=== PATIENT | male | born 1955 | race Caucasian/White ===

== ENCOUNTER 2023-01-05 12:48 | Outpatient (CLI) | payer MEDICARE, BC, SELFPAY ==
[2023-01-05] MEDS: BRIMONIDINE TARTRATE 0.2% OPHTH 1 DROP EYE-LEFT ×2 (12:57→13:49)
[2023-01-05] MEDS: TETRACAINE 0.5% OPHTH 1 DROP EYE-LEFT ×3 (12:57→13:39)
[2023-01-05 12:59] VITALS: BP 144/90; PULSE 93; RESP 16; O2SAT 97
--- NOTE | 2023-01-05 13:47 | W.PM.OPTPROC ---
Procedure Note Date of procedure: 01/05/23 Will [facility] bill your pro fee for this procedure?: Yes Procedure Description: SURGEON: Charmaine Villarreal MD PREOPERATIVE DIAGNOSIS: Posterior capsular opacity, left eye POSTOPERATIVE DIAGNOSIS: Posterior capsular opacity, left eye PROCEDURE: YAG laser capsulotomy, left eye ANESTHESIA: Topical. ESTIMATED BLOOD LOSS: None PATHOLOGY SPECIMEN: None COMPLICATIONS: None INDICATIONS: See consult note for details. The risks, benefits and alternatives of the procedure were explained to the patient, who elected to proceed and signed informed consent to do so. PROCEDURE: The patient was brought to the pre-holding area where the left eye was identified as the operative eye. I placed my initials above this eye. The patient received 2 sets of 1 drop of 0.5% tetracaine and 1 drop of 1% tropicamide. They also received 1 drop of 0.2% brimonidine. They received 1 drop of 0.5% tetracaine immediately prior to bringing them back for the procedure. The patient was then brought to the procedure room where the left eye was again identified as the operative eye. A YAG Zhao capsulotomy lens was placed on the eye. The laser was administered using a total number of 11 shots with an energy of 2.4 mJ per shot for a total energy of 26 mJ. The patient tolerated the procedure well. DISPOSITION: The patient was taken back to the pre-holding area and given 1 drop of 0.2% brimonidine in the left eye. They were discharged to home in stable condition. The patient was instructed to call me or go to the emergency department with any sudden change, including dramatic loss of vision, severe pain in the eye or eyebrow region, nausea, or vomiting. The patient was instructed to use the 0.2% brimonidine 1 drop 2 times a day in the left eye for 1 week. The patient will follow up in the clinic in 1-2 weeks
== END 2023-01-05 13:50 | disposition home or self-care (01) ==
LOC: EYE PRC 12:49
PROVIDERS: PCP Internal Medicine; Visit Provider Ophthalmology
DX: H26.9 Unspecified cataract (principal)
CPT/HCPCS: 66821; A9270

== ENCOUNTER 2023-02-09 11:07 | Outpatient (CLI) | payer MEDICARE, BC, SELFPAY ==
[2023-02-09 11:14] VITALS: BP 165/95; PULSE 78; RESP 16; O2SAT 95
[2023-02-09] MEDS: TETRACAINE 0.5% OPHTH 1 DROP EYE-RIGHT ×3 (11:18→11:52)
[2023-02-09] MEDS: BRIMONIDINE TARTRATE 0.2% OPHTH 1 DROP EYE-RIGHT ×2 (11:18→12:00)
--- NOTE | 2023-02-09 12:40 | P.OPTPRC_ITS ---
Procedure Note Date of procedure: 02/09/23 Will [facility] bill your pro fee for this procedure?: Yes Procedure Description: SURGEON: Charmaine Villarreal MD PREOPERATIVE DIAGNOSIS: Posterior capsular opacity, right eye POSTOPERATIVE DIAGNOSIS: Posterior capsular opacity, right eye PROCEDURE: YAG laser capsulotomy, right eye ANESTHESIA: Topical. ESTIMATED BLOOD LOSS: None PATHOLOGY SPECIMEN: None COMPLICATIONS: None INDICATIONS: See consult note for details. The risks, benefits and alternatives of the procedure were explained to the patient, who elected to proceed and signed informed consent to do so. PROCEDURE: The patient was brought to the pre-holding area where the right eye was identified as the operative eye. I placed my initials above this eye. The patient received 2 sets of 1 drop of 0.5% tetracaine and 1 drop of 1% tropicamide. They also received 1 drop of 0.2% brimonidine. They received 1 drop of 0.5% tetracaine immediately prior to bringing them back for the procedure. The patient was then brought to the procedure room where the right eye was again identified as the operative eye. A YAG Zhao capsulotomy lens was placed on the eye. The laser was administered using a total number of 7 shots with an energy of 2.4 mJ per shot for a total energy of 17 mJ. The patient tolerated the procedure well. DISPOSITION: The patient was taken back to the pre-holding area and given 1 drop of 0.2% brimonidine in the right eye. They were discharged to home in stable condition. The patient was instructed to call me or go to the emergency department with any sudden change, including dramatic loss of vision, severe pain in the eye or eyebrow region, nausea, or vomiting. The patient was instructed to use the 0.2% brimonidine 1 drop 2 times a day in the right eye for 1 week. The patient will follow up in the clinic in 1-2 weeks.
== END 2023-02-09 12:01 | disposition home or self-care (01) ==
LOC: EYE PRC 11:07
PROVIDERS: PCP Internal Medicine; Visit Provider Ophthalmology
DX: H26.9 Unspecified cataract (principal)
CPT/HCPCS: 66821; A9270

== ENCOUNTER 2024-03-22 14:55 | Outpatient (CLI) | payer MEDICARE, BC, SELFPAY | END 2024-03-22 14:56 | disposition home or self-care (01) | PROVIDERS: PCP Internal Medicine; Visit Provider Internal Medicine | DX: Z12.5 Encounter for screening for malignant neoplasm of prostate (principal); E78.2 Mixed hyperlipidemia | CPT/HCPCS: 80061; G0103 ==

== ENCOUNTER 2024-05-07 06:23 | Outpatient (CLI) | payer MEDICARE, BC, SELFPAY ==
--- NOTE | 2024-05-07 08:09 | W.ANESCHARGE ---
Anesthesia Charges Start Date/Time Anesthesia Start Date: 05/07/24 Anesthesia Start Time: 07:23 Stop Date/Time Anesthesia Stop Date: 05/07/24 Anesthesia Stop Time: 08:08
--- NOTE | 2024-05-07 08:33 | W.ANESCHARGE ---
Anesthesia Charges Start Date/Time Anesthesia Start Date: 05/07/24 Anesthesia Start Time: 07:23 Stop Date/Time Anesthesia Stop Date: 05/07/24 Anesthesia Stop Time: 08:08
== END 2024-05-07 06:24 | disposition home or self-care (01) ==
LOC: OP CLINIC 06:24
PROVIDERS: PCP Internal Medicine; Visit Provider Internal Medicine
DX: Z12.11 Encounter for screening for malignant neoplasm of colon (principal); D12.2 Benign neoplasm of ascending colon; Z86.0100 Personal history of colon polyps, unspecified; R10.13 Epigastric pain; K21.9 Gastro-esophageal reflux disease without esophagitis; K31.7 Polyp of stomach and duodenum
CPT/HCPCS: 00813; 43239; 45380; 88305; J2405; J2704

== ENCOUNTER 2024-10-31 14:58 | Outpatient (CLI) | payer MEDICARE, BC, SELFPAY | END 2024-10-31 14:59 | disposition home or self-care (01) | PROVIDERS: PCP Internal Medicine; Visit Provider Internal Medicine | DX: I10 Essential (primary) hypertension (principal); R53.1 Weakness | CPT/HCPCS: 80053; 84439; 84443 ==

== ENCOUNTER 2024-11-07 14:47 | Outpatient (CLI) | payer MEDICARE, BC, SELFPAY ==
--- NOTE | 2024-11-07 15:00 | CRLHL7_ITS ---
For Patients: As a result of the Century Cures Act, medical imaging exams and procedure reports are released immediately into your electronic medical record. You may view this report before your referring provider. If you have questions, please contact your health care provider. INDICATION: WEAKNESS, DIZZINESS, EYE FOCUS ISSUES, BRAIN FOG, SOB, EARS PLUGGED, NECK STIFFNESS, EASILY WINDED TECHNIQUE: Non-contrast CT of the head is submitted. COMPARISON: CT maxillofacial dated 09/10/2020 FINDINGS: Mild diffuse parenchymal volume loss with commensurate ex vacuo dilatation of the ventricles and sulci. Left cerebellar hemisphere chronic lacunar infarct. 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 No sign of mass effect, acute hemorrhage, or midline shift. 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 The paranasal sinuses and mastoid air cells are otherwise essentially clear. The visualized orbits are grossly unremarkable. No skull fractures. No discretely visualized focal scalp lesions. IMPRESSION: No acute intracranial findings. Please note that all CT scans at this facility use dose modulation, iterative reconstruction, and/or weight-based dosing when appropriate to reduce radiation dose to as low as reasonably achievable. Dictated by Quinton Gómez MD @ 11/07/2024 11:09:48 PM (Electronically Signed)
== END 2024-11-07 14:48 | disposition home or self-care (01) ==
LOC: CT 14:50
PROVIDERS: PCP Internal Medicine; Visit Provider Internal Medicine
DX: R53.1 Weakness (principal); M43.6 Torticollis
CPT/HCPCS: 70450

== ENCOUNTER 2024-11-14 09:43 | Outpatient (CLI) | payer MEDICARE, BC, SELFPAY | END 2024-11-14 09:44 | disposition home or self-care (01) | LOC: RAD 09:44 | PROVIDERS: PCP Internal Medicine; Visit Provider Internal Medicine | DX: I10 Essential (primary) hypertension (principal); I34.0 Nonrheumatic mitral (valve) insufficiency; R53.1 Weakness; R55 Syncope and collapse | CPT/HCPCS: 93306 ==

== ENCOUNTER 2024-11-27 13:47 | Outpatient (CLI) | payer MEDICARE, BC, SELFPAY ==
[2024-11-27 14:43] VITALS: BP 162/112; PULSE 104; RESP 18
--- NOTE | 2024-11-27 15:00 | W.PM.STED ---
Stress Test Note Date Date Seen: 11/27/24 Providers Primary care provider: Jon Wiley Stress test physician: Mookie Awan Stress Test Note Stress test ordered: Stress Echo Indication for test: Weakness, chest pain Results discussion: 60-year-old gentleman presents for the above test, after discussion the risks benefits side effects he would like to proceed pretest EKG shows normal sinus rhythm, with a ventricular rate 87. No acute ST wave changes are noted. Slight right graves axis is noted. Following standard Wei protocol patient is exercised for a total time of 10 minutes 10 seconds, achieved a metabolic equivalent of 11.7 Mets, maximum heart rate was 166 which is 128% of the maximum, his maximum blood pressure was 176 and 92. Should be noted that the the machine did malfunction I was unable to stop it, and I had to hit the red button. Review of the tracing showed no ST wave changes suggestive of ischemia, conditioning was felt to be excellent. Impression: Negative electrographic portion of stress echo, subjectively negative Follow up suggested: Await echo imaging, results he has follow-up with clinical correlation with these is suggested, patient at this testing facility in excellent condition there were no other complications.
== END 2024-11-27 14:44 | disposition home or self-care (01) ==
LOC: STRESS 13:49
PROVIDERS: PCP Internal Medicine; Visit Provider Internal Medicine
DX: R07.89 Other chest pain (principal); R53.1 Weakness
CPT/HCPCS: 93016; 93325; 93351

== ENCOUNTER 2025-01-14 14:12 | Outpatient (RCR) | payer MEDICARE, BC, SELFPAY ==
--- NOTE | 2025-01-14 17:51 | OT.OPGNE2 ---
OT Outpatient General/Neuro Eval OT Outpatient General/Neuro Eval* Start: 01/14/25 17:25 Freq: Status: Active Protocol: Document 01/14/25 17:30 LCN (Rec: 01/14/25 17:50 LCN [id number]) E-signed By Susy Velazquez, OTR/L, CLT OT Outpatient Evaluation Details Type Type Eval Complexity Low Insurance Information Insurance Information Insurance Blue Cross/Blue Shield,Medicare B Information Outpatient History/Precautions Current Condition Referring Provider Vivian Wiley MD Medical Diagnoses Cognitive change Date of Onset 12/12/24 Medical/Functional History Medical History Yes Reviewed Prior Level of Pt lives locally with his in a split level home. Function/Mobility Enjoys biking 5-6 miles/day and walking via path 2 miles on non-biking days. Has 4 grown children in the [place] area and 8 grandchildren . 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 Prior Medical History Prior Medical Pt is currently being treated for high blood pressure, History finally down the 138/98 range. (prior to meds had been in the high 170's, so much better now). Has been having complaints of feeling wobbly weak with the new blood pressure medications, more neck stiffness and gait instability at times when his symptoms are higher. Has had recent head CT, EKG, stress test on treadmill and bloodwork, all negative. 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 Agrees that he has less confidence with recall of names, uses associations for strategy. Feels driving , blll paying and medication regimen are going well. not available for comment. Cognitive Assessments Performed Cognitive Assessments Performed Ernesto Cognitive Assessment (MOCA) Results Pt scores 28/30. Missing 1 delayed remote recall word . Pt notes he has been a strong math person, lifelong. Word fluency task was harder due to lower interest area and anxious testing pattern with timed tasks per pt. Has several degrees and certificates in the engineering , computer industries and is retired from the industry. Assessment Assessment Assessment Pt is scoring in the WNL level for basic cognitive functioning and demonstrates good compensatory strategies for recall of names and uses checklists/list making to track daily tasks and errands. No further OT is needed at this time. Occupational Therapy Treatment Plan - OP Set Goals Goals Set with No: eval only Patient Goals Goals Patient and family to verbalize understanding of? Ernesto Cognitive Assessment, and identify use of 3 strategies to increase patient's safety and independence in the home and community settings. PROGRESS-- GOAL MET. Treatment Plan Treatment Plan Evaluation,Education Treatment/Frequency/ No further OT needed at this time. Duration Comments Certification Certification Statement I Certify That: Therapy Services Provided Certification Information Clinic ID # [id number] Initial 01/14/25 Certification Date Recertification Due 01/14/25 Date Provider Signature Yes Required Provider Signature POC & Medical Necessity Shows Agreement With Physician NPI Number Write NPI# Here Physician Comment/ Comment or Changes Change Physician Signature Please Sign/Date Here & Date Requested
== END 2025-01-15 07:24 | disposition home or self-care (01) ==
PROVIDERS: PCP Internal Medicine; Visit Provider Internal Medicine
DX: R41.89 Other symptoms and signs involving cognitive functions and awareness (principal); Z51.89 Encounter for other specified aftercare
CPT/HCPCS: 97165